=== PATIENT | male | born 1965 | race Caucasian/White ===

== ENCOUNTER 2021-12-03 07:03 | Inpatient (IN) | payer OTHER ==
[2021-12-01 15:17] LABS: BASOPHILS % 0.2 % (0.0-1.0); EOSINOPHILS # (AUTO) 0.3 (0.0-0.4); EOSINOPHILS % 5.8 % (0.0-6.0); HEMATOCRIT 41.3 % (38.2-49.6); HEMOGLOBIN 13.1 g/dL (14.0-18.0); LYMPHOCYTES # (AUTO) 1.8 (1.0-3.2); LYMPHOCYTES % 33.3 % (18.0-39.1); MEAN CORPUSCULAR HGB CONC 31.7 g/dL (31-35); MEAN CORPUSCULAR VOLUME 88.2 fL (81-99); MONOCYTES # (AUTO) 0.7 (0.2-0.8); MONOCYTES % 11.8 % (4.4-11.3); NEUTROPHILS # (AUTO) 2.7 (2.1-6.9); NEUTROPHILS % 48.7 % (38.7-80.0); PLATELET COUNT 286 x10e3/uL (140-360); RED BLOOD COUNT 4.68 x10e6/uL (4.3-5.7); RED CELL DISTRIBUTION WIDTH 12.7 % (11.7-14.4)
[2021-12-01 15:42] LABS: ALBUMIN 3.7 g/dL (3.5-5.0); ALBUMIN/GLOBULIN RATIO 0.9 (0.8-2.0); ANION GAP 12.3 mmol/L (8-16); CALCIUM 8.9 mg/dL (8.4-10.2); POTASSIUM 4.3 mmol/L (3.5-5.1)
[2021-12-03] VITALS (17 sets, daily range): BP systolic 112–140; BP diastolic 80–99
[~2021-12-03] VITALS: Ht 175.3 cm; Wt 91.6 kg
[~2021-12-03 07:03] MED LIST: ALFUZOSIN HCL10 MG PO; IRBESARTAN75 MG PO; NEOMYCIN SULFA500 MG PO; [UNRECOGNIZED DRUG - OTHER] PO
[2021-12-03] MEDS ORDERED: SUGAMMADEX SODIUM 200 MG/2 ML VIAL IV ONE (07:26)
[2021-12-03] MEDS ORDERED: IOPAMIDOL 300MG/ML 50ML INFUS..BTL IV ONE (07:38)
[2021-12-03] MEDS ORDERED: ACETAMINOPHEN 1000 MG/100 ML IV PRN (11:30)
[2021-12-03] MEDS ORDERED: NALOXONE HCL INJ 0.4 MG/ML AMP IV PRN (11:30)
[2021-12-03] MEDS: HYDROMORPHONE 0.2MG/ML-SOD CHL 30ML PCA SYRINGE IV PRN ×4 (11:40→14:32)
[2021-12-03] MEDS ORDERED: MEPERIDINE HCL INJ 25 MG/ML VIAL ONE (11:46)
[2021-12-03] MEDS ORDERED: MIDAZOLAM HCL 2 MG/2 ML VIAL ONE ×2 (12:34→12:54)
[2021-12-03] MEDS ORDERED: FENTANYL CITRATE/PF 100MCG/2 ML INJ ONE ×2 (12:34→12:54)
[2021-12-03] MEDS: SODIUM CHLORIDE 0.9% 250ML IRRIG IR SCH ×4 (14:02→23:20)
[2021-12-03] MEDS: DEXTROSE 5%/LACTATED RINGERS 1,000 ML IV SCH ×2 (14:02→20:20)
[2021-12-03] MEDS ORDERED: ONDANSETRON HCL INJ 2MG/ML 2ML 2 MG/ML VIAL ONE (16:18)
[2021-12-03] MEDS ORDERED: SEVOFLURANE INHAL SOLN 250 ML PEN BTL ONE (16:18)
[2021-12-03] MEDS ORDERED: ROCURONIUM BROMIDE 10 MG/ML 5ML VIAL IV ONE (16:18)
[2021-12-03] MEDS ORDERED: KETOROLAC TROMETHAMINE 30 MG/ML VIAL ONE (16:18)
[2021-12-03] MEDS ORDERED: PROPOFOL IV EMULSION 10 MG/ML 20 ML VIAL ONE (16:18)
[2021-12-03] MEDS ORDERED: GLYCOPYRROLATE INJ 0.2 MG/ML VIAL ONE (16:18)
[2021-12-03] MEDS ORDERED: POVIDONE IODINE 0.05% 0.05 % ML PO ONE (16:18)
[2021-12-03] MEDS ORDERED: EPHEDRINE SULFATE INJ 50 MG/ML VIAL ONE (16:18)
[2021-12-03] MEDS ORDERED: LIDOCAINE HCL 2% LOCAL INJ 5 ML SDV VIAL INJ ONE ×2 (16:18)
[2021-12-03] MEDS ORDERED: DEXAMETHASONE SOD PHOS INJ 4 MG/ML SDV ONE (16:18)
[2021-12-03] MEDS ORDERED: LACTATED RINGER'S 1,000 ML ONE (17:48)
[2021-12-03] MEDS ORDERED: CHLORASEPTIC SPRAY 177 ML BTL MM PRN (18:00)
[2021-12-03] MEDS ORDERED: LACTATED RINGER'S 500 ML IV ONE (18:10)
[2021-12-03] MEDS: ENOXAPARIN SOD INJ 40 MG/0.4 ML SYR SC SCH (20:20)
[2021-12-03 23:51] LABS: BASOPHILS % 0.1 % (0.0-1.0); HEMATOCRIT 40.6 % (38.2-49.6); HEMOGLOBIN 13.2 g/dL (14.0-18.0); MEAN CORPUSCULAR HEMOGLOBIN 28.2 pg (28-32); MEAN CORPUSCULAR HGB CONC 32.5 g/dL (31-35); MEAN CORPUSCULAR VOLUME 86.8 fL (81-99); MONOCYTES # (AUTO) 1.7 (0.2-0.8); MONOCYTES % 12.8 % (4.4-11.3); NEUTROPHILS # (AUTO) 10.2 (2.1-6.9); NEUTROPHILS % 78.8 % (38.7-80.0); PLATELET COUNT 288 x10e3/uL (140-360); RED BLOOD COUNT 4.68 x10e6/uL (4.3-5.7); RED CELL DISTRIBUTION WIDTH 12.8 % (11.7-14.4)
[2021-12-04] VITALS (24 sets, daily range): BP systolic 108–142; BP diastolic 78–96
[2021-12-04 00:11] LABS: ALBUMIN 3.1 g/dL (3.5-5.0); ALBUMIN/GLOBULIN RATIO 0.9 (0.8-2.0); ANION GAP 13.2 mmol/L (8-16); CALCIUM 7.9 mg/dL (8.4-10.2); CREATININE, SERUM 3.08 mg/dL (0.72-1.25); POTASSIUM 4.2 mmol/L (3.5-5.1)
[2021-12-04] MEDS: SODIUM CHLORIDE 0.9% 250ML IRRIG IR SCH ×6 (03:30→23:57)
[2021-12-04] MEDS: ONDANSETRON HCL INJ 2MG/ML 2ML 2 MG/ML VIAL IV PRN (04:15)
[2021-12-04] MEDS: HYDROMORPHONE 0.2MG/ML-SOD CHL 30ML PCA SYRINGE IV PRN ×2 (04:30→11:32)
[2021-12-04] MEDS ORDERED: IOPAMIDOL 300MG/ML 50ML INFUS..BTL IV ONE (06:31)
[2021-12-04] MEDS ORDERED: B&O 60MG R/S 60 MG SUPP PR ONE (06:32)
[2021-12-04] MEDS: DEXTROSE 5%/LACTATED RINGERS 1,000 ML IV SCH ×3 (08:25→23:57)
[2021-12-04 09:07] LABS: BASOPHILS % 0.1 % (0.0-1.0); HEMATOCRIT 41.8 % (38.2-49.6); HEMOGLOBIN 13.5 g/dL (14.0-18.0); LYMPHOCYTES # (AUTO) 0.7 (1.0-3.2); LYMPHOCYTES % 5.4 % (18.0-39.1); MEAN CORPUSCULAR HEMOGLOBIN 28.6 pg (28-32); MEAN CORPUSCULAR HGB CONC 32.3 g/dL (31-35); MEAN CORPUSCULAR VOLUME 88.6 fL (81-99); MONOCYTES % 7.1 % (4.4-11.3); NEUTROPHILS # (AUTO) 11.7 (2.1-6.9); NEUTROPHILS % 86.9 % (38.7-80.0); PLATELET COUNT 285 x10e3/uL (140-360); RED BLOOD COUNT 4.72 x10e6/uL (4.3-5.7); RED CELL DISTRIBUTION WIDTH 12.9 % (11.7-14.4)
[2021-12-04 09:35] LABS: ANION GAP 13.1 mmol/L (8-16); CREATININE, SERUM 3.31 mg/dL (0.72-1.25); POTASSIUM 4.1 mmol/L (3.5-5.1)
[2021-12-04] MEDS ORDERED: ONDANSETRON HCL INJ 2MG/ML 2ML 2 MG/ML VIAL ONE (15:10)
[2021-12-04] MEDS ORDERED: DEXAMETHASONE SOD PHOS INJ 4 MG/ML SDV ONE (15:10)
[2021-12-04] MEDS ORDERED: LIDOCAINE HCL 2% LOCAL INJ 5 ML SDV VIAL INJ ONE (15:10)
[2021-12-04] MEDS ORDERED: SEVOFLURANE INHAL SOLN 250 ML PEN BTL ONE (15:10)
[2021-12-04] MEDS ORDERED: PROPOFOL IV EMULSION 10 MG/ML 20 ML VIAL ONE (15:10)
[2021-12-04] MEDS ORDERED: POVIDONE IODINE 0.05% 0.05 % ML PO ONE (15:10)
[2021-12-04 18:53] LABS: BASOPHILS % 0.1 % (0.0-1.0); HEMATOCRIT 39.1 % (38.2-49.6); HEMOGLOBIN 12.5 g/dL (14.0-18.0); LYMPHOCYTES # (AUTO) 1.1 (1.0-3.2); LYMPHOCYTES % 7.9 % (18.0-39.1); MEAN CORPUSCULAR VOLUME 87.7 fL (81-99); MONOCYTES # (AUTO) 1.3 (0.2-0.8); MONOCYTES % 9.6 % (4.4-11.3); NEUTROPHILS # (AUTO) 11.2 (2.1-6.9); NEUTROPHILS % 81.9 % (38.7-80.0); PLATELET COUNT 268 x10e3/uL (140-360); RED BLOOD COUNT 4.46 x10e6/uL (4.3-5.7); RED CELL DISTRIBUTION WIDTH 12.9 % (11.7-14.4)
[2021-12-04 19:14] LABS: CALCIUM 7.8 mg/dL (8.4-10.2); CREATININE, SERUM 2.17 mg/dL (0.72-1.25)
[2021-12-04] MEDS: ENOXAPARIN SOD INJ 40 MG/0.4 ML SYR SC SCH (22:01)
[2021-12-05] VITALS (24 sets, daily range): BP systolic 109–140; BP diastolic 76–96
[2021-12-05] MEDS: SODIUM CHLORIDE 0.9% 250ML IRRIG IR SCH ×7 (03:30→23:30)
[2021-12-05 05:05] LABS: BASOPHILS % 0.2 % (0.0-1.0); HEMATOCRIT 39.2 % (38.2-49.6); HEMOGLOBIN 12.4 g/dL (14.0-18.0); LYMPHOCYTES # (AUTO) 1.6 (1.0-3.2); LYMPHOCYTES % 13.2 % (18.0-39.1); MEAN CORPUSCULAR HEMOGLOBIN 28.4 pg (28-32); MEAN CORPUSCULAR HGB CONC 31.6 g/dL (31-35); MEAN CORPUSCULAR VOLUME 89.7 fL (81-99); MONOCYTES # (AUTO) 1.5 (0.2-0.8); MONOCYTES % 12.6 % (4.4-11.3); NEUTROPHILS # (AUTO) 8.9 (2.1-6.9); NEUTROPHILS % 73.5 % (38.7-80.0); PLATELET COUNT 203 x10e3/uL (140-360); RED BLOOD COUNT 4.37 x10e6/uL (4.3-5.7); RED CELL DISTRIBUTION WIDTH 12.7 % (11.7-14.4)
[2021-12-05] MEDS: HYDROMORPHONE 0.2MG/ML-SOD CHL 30ML PCA SYRINGE IV PRN (05:28)
[2021-12-05 05:32] LABS: CALCIUM 7.9 mg/dL (8.4-10.2); CREATININE, SERUM 1.43 mg/dL (0.72-1.25)
[2021-12-05] MEDS: DEXTROSE 5%/LACTATED RINGERS 1,000 ML IV SCH ×2 (16:47→21:00)
[2021-12-05] MEDS: ENOXAPARIN SOD INJ 40 MG/0.4 ML SYR SC SCH (20:40)
[2021-12-06] VITALS (28 sets, daily range): BP systolic 122–149; BP diastolic 88–105
[2021-12-06 04:57] LABS: BASOPHILS % 0.1 % (0.0-1.0); EOSINOPHILS # (AUTO) 0.1 (0.0-0.4); HEMATOCRIT 38.7 % (38.2-49.6); HEMOGLOBIN 12.2 g/dL (14.0-18.0); LYMPHOCYTES # (AUTO) 1.9 (1.0-3.2); LYMPHOCYTES % 21.7 % (18.0-39.1); MEAN CORPUSCULAR HEMOGLOBIN 28.1 pg (28-32); MEAN CORPUSCULAR HGB CONC 31.5 g/dL (31-35); MEAN CORPUSCULAR VOLUME 89.2 fL (81-99); MONOCYTES # (AUTO) 1.3 (0.2-0.8); MONOCYTES % 14.4 % (4.4-11.3); NEUTROPHILS # (AUTO) 5.5 (2.1-6.9); NEUTROPHILS % 62.5 % (38.7-80.0); PLATELET COUNT 244 x10e3/uL (140-360); RED BLOOD COUNT 4.34 x10e6/uL (4.3-5.7); RED CELL DISTRIBUTION WIDTH 12.6 % (11.7-14.4)
[2021-12-06 05:18] LABS: CALCIUM 8.2 mg/dL (8.4-10.2); CREATININE, SERUM 0.93 mg/dL (0.72-1.25)
[2021-12-06] MEDS: DEXTROSE 5%/LACTATED RINGERS 1,000 ML IV SCH ×2 (13:30→19:30)
[2021-12-06] MEDS ORDERED: SIMETHICONE 80 MG CHEW PO PRN (21:15)
[2021-12-07] VITALS: BP 137/101
[2021-12-07] MEDS: DEXTROSE 5%/LACTATED RINGERS 1,000 ML IV SCH ×2 (00:13→16:06)
[2021-12-07] MEDS: HYDROMORPHONE 0.2MG/ML-SOD CHL 30ML PCA SYRINGE IV PRN ×2 (05:48→22:08)
[2021-12-07] MEDS: ONDANSETRON HCL INJ 2MG/ML 2ML 2 MG/ML VIAL IV PRN (08:29)
[2021-12-07 11:38] VITALS: BP 137/103
[2021-12-07] MEDS ORDERED: SIMETHICONE 80 MG CHEW PO PRN (12:15)
[2021-12-07 12:33] LABS: BASOPHILS % 0.2 % (0.0-1.0); EOSINOPHILS # (AUTO) 0.1 (0.0-0.4); EOSINOPHILS % 1.6 % (0.0-6.0); HEMATOCRIT 41.5 % (38.2-49.6); HEMOGLOBIN 13.4 g/dL (14.0-18.0); MEAN CORPUSCULAR HEMOGLOBIN 27.9 pg (28-32); MEAN CORPUSCULAR HGB CONC 32.3 g/dL (31-35); MEAN CORPUSCULAR VOLUME 86.3 fL (81-99); MONOCYTES # (AUTO) 1.4 (0.2-0.8); MONOCYTES % 15.4 % (4.4-11.3); NEUTROPHILS # (AUTO) 5.5 (2.1-6.9); NEUTROPHILS % 60.6 % (38.7-80.0); PLATELET COUNT 265 x10e3/uL (140-360); RED BLOOD COUNT 4.81 x10e6/uL (4.3-5.7); RED CELL DISTRIBUTION WIDTH 12.4 % (11.7-14.4)
[2021-12-07] MEDS: IRBESARTAN 150 MG TAB PO SCH ×2 (12:52→13:00)
[2021-12-07] MEDS: BISACODYL 10 MG SUPP PR ONE ×2 (12:52→15:42)
[2021-12-07 12:53] LABS: ALBUMIN 2.6 g/dL (3.5-5.0); ALBUMIN/GLOBULIN RATIO 0.7 (0.8-2.0); ANION GAP 12.3 mmol/L (8-16); CALCIUM 8.4 mg/dL (8.4-10.2); CREATININE, SERUM 0.84 mg/dL (0.72-1.25); POTASSIUM 3.3 mmol/L (3.5-5.1)
[2021-12-07 13:54] VITALS: BP 137/103
[2021-12-07 14:17] VITALS: BP 140/95
[2021-12-07 16:30] VITALS: BP 109/93
[2021-12-07 20:14] VITALS: BP 124/90
[2021-12-07] MEDS: ALFUZOSIN HCL 10 MG TAB.ER.24H PO SCH (21:00)
[2021-12-08] VITALS (7 sets, daily range): BP systolic 89–125; BP diastolic 61–85
[2021-12-08] MEDS ORDERED: PIPERACILLIN/TAZOBACTAM 3.375 GM VIAL ONE (02:35)
[2021-12-08] MEDS: DEXTROSE 5%/LACTATED RINGERS 1,000 ML IV SCH ×3 (03:40→23:52)
[2021-12-08] MEDS: IRBESARTAN 150 MG TAB PO SCH (09:00)
[2021-12-08] MEDS ORDERED: BISACODYL 10 MG SUPP PR ONE (09:45)
[2021-12-08] MEDS: HYDROMORPHONE 1MG/1ML INJ IV PRN ×2 (13:23→23:52)
[2021-12-08] MEDS: ALFUZOSIN HCL 10 MG TAB.ER.24H PO SCH (21:00)
[2021-12-09] VITALS (7 sets, daily range): BP systolic 125–138; BP diastolic 84–94
[2021-12-09] MEDS: HYDROCODONE/APAP 7.5MG-325MG 1 EA TAB PO PRN (02:13)
[2021-12-09] MEDS: HYDROMORPHONE 1MG/1ML INJ IV PRN ×3 (04:05→13:20)
[2021-12-09 05:48] LABS: BASOPHILS % 0.2 % (0.0-1.0); EOSINOPHILS # (AUTO) 0.4 (0.0-0.4); EOSINOPHILS % 3.6 % (0.0-6.0); HEMATOCRIT 31.1 % (38.2-49.6); HEMOGLOBIN 10.3 g/dL (14.0-18.0); LYMPHOCYTES # (AUTO) 1.1 (1.0-3.2); LYMPHOCYTES % 10.8 % (18.0-39.1); MEAN CORPUSCULAR HEMOGLOBIN 28.1 pg (28-32); MEAN CORPUSCULAR HGB CONC 33.1 g/dL (31-35); MONOCYTES # (AUTO) 1.2 (0.2-0.8); MONOCYTES % 11.8 % (4.4-11.3); NEUTROPHILS # (AUTO) 7.3 (2.1-6.9); NEUTROPHILS % 73.1 % (38.7-80.0); PLATELET COUNT 283 x10e3/uL (140-360); RED BLOOD COUNT 3.66 x10e6/uL (4.3-5.7); RED CELL DISTRIBUTION WIDTH 12.2 % (11.7-14.4)
[2021-12-09 06:15] LABS: ANION GAP 9.7 mmol/L (8-16); CALCIUM 8.1 mg/dL (8.4-10.2); CREATININE, SERUM 1.15 mg/dL (0.72-1.25)
[2021-12-09 06:19] LABS: POTASSIUM 2.7 mmol/L (3.5-5.1)
[2021-12-09] MEDS ORDERED: POTASSIUM CHLORIDE 10MEQ/100ML 100 ML IV ONE ×4 (06:45→07:00)
[2021-12-09] MEDS: POTASSIUM CHLORIDE IV SCH ×2 (08:24→13:13)
[2021-12-09] MEDS: SODIUM CHLORIDE 0.9% IV SCH ×2 (08:24→13:13)
[2021-12-09] MEDS: IRBESARTAN 150 MG TAB PO SCH (10:02)
[2021-12-09] MEDS: DEXTROSE 5%/LACTATED RINGERS 1,000 ML IV SCH ×2 (11:23→17:09)
[2021-12-09] MEDS: KETOROLAC TROMETHAMINE 30 MG/ML VIAL IV SCH ×2 (14:43→22:00)
[2021-12-09] MEDS ORDERED: POTASSIUM CHLORIDE 20MEQ/100ML 200 ML IV ONE (20:30)
[2021-12-09] MEDS: ALFUZOSIN HCL 10 MG TAB.ER.24H PO SCH (21:06)
[2021-12-10] VITALS (7 sets, daily range): BP systolic 135–150; BP diastolic 89–100
[2021-12-10] MEDS: DEXTROSE 5%/LACTATED RINGERS 1,000 ML IV SCH ×3 (00:45→23:21)
[2021-12-10] MEDS: HYDROMORPHONE 1MG/1ML INJ IV PRN ×6 (02:59→23:21)
[2021-12-10 05:10] LABS: BASOPHILS % 0.3 % (0.0-1.0); EOSINOPHILS # (AUTO) 0.8 (0.0-0.4); EOSINOPHILS % 8.9 % (0.0-6.0); HEMOGLOBIN 10.6 g/dL (14.0-18.0); LYMPHOCYTES # (AUTO) 1.5 (1.0-3.2); LYMPHOCYTES % 16.4 % (18.0-39.1); MEAN CORPUSCULAR HGB CONC 33.1 g/dL (31-35); MEAN CORPUSCULAR VOLUME 84.7 fL (81-99); MONOCYTES # (AUTO) 1.1 (0.2-0.8); MONOCYTES % 11.6 % (4.4-11.3); NEUTROPHILS # (AUTO) 5.7 (2.1-6.9); NEUTROPHILS % 62.4 % (38.7-80.0); PLATELET COUNT 312 x10e3/uL (140-360); RED BLOOD COUNT 3.78 x10e6/uL (4.3-5.7); RED CELL DISTRIBUTION WIDTH 12.3 % (11.7-14.4)
[2021-12-10 05:34] LABS: CALCIUM 7.8 mg/dL (8.4-10.2); CREATININE, SERUM 0.89 mg/dL (0.72-1.25)
[2021-12-10] MEDS: KETOROLAC TROMETHAMINE 30 MG/ML VIAL IV SCH (06:14)
[2021-12-10] MEDS: IRBESARTAN 150 MG TAB PO SCH (09:30)
[2021-12-10] MEDS ORDERED: POTASSIUM CHLORIDE 20MEQ/100ML 200 ML IV ONE ×2 (10:00→14:00)
[2021-12-10] MEDS: HYDROCODONE/APAP 7.5MG-325MG 1 EA TAB PO PRN (19:51)
[2021-12-10] MEDS: ALFUZOSIN HCL 10 MG TAB.ER.24H PO SCH (21:24)
[2021-12-11 00:46] VITALS: BP 130/94
[2021-12-11] MEDS: HYDROMORPHONE 1MG/1ML INJ IV PRN ×2 (02:54→08:10)
[2021-12-11 05:33] VITALS: BP 140/101
[2021-12-11] MEDS: HYDROCODONE/APAP 7.5MG-325MG 1 EA TAB PO PRN ×2 (05:41→16:10)
[2021-12-11 07:51] LABS: BASOPHILS % 0.2 % (0.0-1.0); EOSINOPHILS # (AUTO) 0.7 (0.0-0.4); EOSINOPHILS % 7.8 % (0.0-6.0); HEMATOCRIT 34.3 % (38.2-49.6); HEMOGLOBIN 11.3 g/dL (14.0-18.0); LYMPHOCYTES # (AUTO) 1.7 (1.0-3.2); LYMPHOCYTES % 20.5 % (18.0-39.1); MEAN CORPUSCULAR HEMOGLOBIN 28.2 pg (28-32); MEAN CORPUSCULAR HGB CONC 32.9 g/dL (31-35); MEAN CORPUSCULAR VOLUME 85.5 fL (81-99); MONOCYTES # (AUTO) 1.3 (0.2-0.8); MONOCYTES % 14.8 % (4.4-11.3); NEUTROPHILS # (AUTO) 4.8 (2.1-6.9); NEUTROPHILS % 56.3 % (38.7-80.0); PLATELET COUNT 346 x10e3/uL (140-360); RED BLOOD COUNT 4.01 x10e6/uL (4.3-5.7); RED CELL DISTRIBUTION WIDTH 12.5 % (11.7-14.4)
[2021-12-11 08:11] LABS: ANION GAP 13.3 mmol/L (8-16); CALCIUM 7.9 mg/dL (8.4-10.2); CREATININE, SERUM 0.9 mg/dL (0.72-1.25); POTASSIUM 3.3 mmol/L (3.5-5.1)
[2021-12-11] MEDS: IRBESARTAN 150 MG TAB PO SCH (08:16)
[2021-12-11 08:18] VITALS: BP 137/97
[2021-12-11 08:31] VITALS: BP 137/97
[2021-12-11 11:36] VITALS: BP 129/101
[2021-12-11] MEDS ORDERED: SODIUM CHLORIDE 0.9% 250ML 250 ML ONE (12:07)
[2021-12-11] MEDS: DEXTROSE 5%/LACTATED RINGERS 1,000 ML IV SCH (12:08)
[2021-12-11] MEDS ORDERED: ONDANSETRON HCL 4 MG ORAL DISINTEGRATING TAB PO PRN (12:45)
[2021-12-11 16:08] VITALS: BP 138/92
[2021-12-12] MEDS ORDERED: PANTOPRAZOLE SOD 40 MG TABEC PO SCH (07:30)
== END 2021-12-11 19:07 | disposition home or self-care (01) | DRG 330 ==
LOC: OR 07:03 → PACU V 11:17 → ICU 12:13 → MED/SURG 12-07 14:47
PROVIDERS: ADMIT Surgery; ATTEND Surgery
PROC: 0WPF0JZ Removal of Synthetic Substitute from Abdominal Wall, Open Approach (ICD-10-PCS; 2021-12-03)
PROC: 0DBN0ZZ Excision of Sigmoid Colon, Open Approach (ICD-10-PCS; 2021-12-03)
PROC: BT141ZZ Fluoroscopy of Kidneys, Ureters and Bladder using Low Osmolar Contrast (ICD-10-PCS; 2021-12-03)
PROC: 0T788DZ Dilation of Bilateral Ureters with Intraluminal Device, Via Natural or Artificial Opening Endoscopic (ICD-10-PCS; principal; 2021-12-03 07:30)
PROC: 0DBM0ZZ Excision of Descending Colon, Open Approach (ICD-10-PCS; 2021-12-03 07:30)
PROC: 0T788DZ Dilation of Bilateral Ureters with Intraluminal Device, Via Natural or Artificial Opening Endoscopic (ICD-10-PCS; 2021-12-04)
PROC: BT141ZZ Fluoroscopy of Kidneys, Ureters and Bladder using Low Osmolar Contrast (ICD-10-PCS; 2021-12-04)
DX: K57.20 Diverticulitis of large intestine with perforation and abscess without bleeding (principal); N17.9 Acute kidney failure, unspecified; N13.39 Other hydronephrosis; K42.9 Umbilical hernia without obstruction or gangrene; E66.9 Obesity, unspecified; I10 Essential (primary) hypertension; N40.1 Benign prostatic hyperplasia with lower urinary tract symptoms; R39.14 Feeling of incomplete bladder emptying; R39.15 Urgency of urination; R31.29 Other microscopic hematuria; R35.0 Frequency of micturition; R35.1 Nocturia; Z68.29 Body mass index [BMI] 29.0-29.9, adult; N28.1 Cyst of kidney, acquired; K66.0 Peritoneal adhesions (postprocedural) (postinfection); D64.9 Anemia, unspecified; N32.81 Overactive bladder; Z20.822 Contact with and (suspected) exposure to COVID-19
CPT/HCPCS: 36415; 74420; 80048; 80053; 83735; 84132; 85025; 88305; 88307; 93005; 94799; C1758; C2617; J0694; J1100; J1170; J1650; J1885; J2001; J2175; J2250; J2405; J2543; J3010; J3480; J7050; J7121; U0002